=== PATIENT | male | born 1935 | race Caucasian/White ===

== ENCOUNTER 2016-11-22 10:40 | Inpatient (IN) | payer SELFPAY ==
[~2016-11-22] VITALS: Ht 167.6 cm; Wt 69.5 kg
--- NOTE | ~2016-11-22 | ECH ---
Transthoracic Echocardiography Report (TTE) Demographics Patient Name HARVINDER ALEXIS Date of Study 11/22/2016 Patient Number [id number] Visit Number [id number] Date of 1935 Room Number 311 Accession Number [id number] Gender Male Age 81 year(s) Referring Rebecca Shin Living Specialist Ariane Huston Physician [facility] Physician Interpreting [place] Jonh Zavala MD Leasing Manager Physician Supervising Ordering Physician Rebecca Shin MD/SANA RUIZ Nurse Stress Managed Care Nurse Conclusions Contractility Score Summary Normal Left Ventricular contractility was noted. Summary Technically good exam. The estimated left ventricular ejection fraction is 60%. Diastolic assessment reveals Grade I diastolic dysfunction. There is trivial aortic regurgitation by color Doppler. Mild tricuspid regurgitation by color Doppler. There is mild pulmonary hypertension. The pulmonary pressure (RVSP) is 35 mmHg. The ascending aorta appears mildly dilated. The maximum diameter measures 3.6 cm. Procedure Type of Study TTE procedure:Echo Complete SF. Procedure Date Date: 11/22/2016 Start: 02:06 PM Technical Quality: Good visualization Indications:Chest pain and Acute AR. Additional Indications:s/p stent Appropriate Use Criteria: 9 Height: 66 inches Weight: 155 pounds BSA: 1.79 m Rhythm: NSR HR: 75 bpm BP: 135/76 mmHg Allergies - No known allergies. M-Mode/2D Measurements LV Diastolic Dimension: 4.83 cm LV Systolic Dimension: 3.35 cm LV Septum Diastolic: 0.77 cm LV PW Diastolic: 0.9 cm AO Root Dimension: 3.54 cm Cardiac Output: 4.03 l/min LA Dimension: 3.71 cm Cardiac Index: 2.25 l/min*m RV Diastolic Dimension: 4.16 cm LA volume index: 32 ml/m LVOT: 2.06 cm LVOT VTI: 16.15 cm RV Base: 3 cm LV Stroke volume: 53.8 ml RV Mid: 2.1 cm LV Stroke volume index: 30.06 ml/m TAPSE: 2.3 cm TDI-S': 12 cm/s Doppler Measurements AV Peak Velocity: 0.88 m/s MV Peak E-Wave: 0.43 m/s AV Peak Gradient: 3.12 mmHg MV Peak A-Wave: 0.84 m/s AV Mean Gradient: 1.84 mmHg MV E/A Ratio: 0.51 LVOT Peak Velocity: 0.66 m/s MV P1/2t: 74.5 msec AV Area (Continuity):2.61 cm MV Deceleration Time: 157.5 msec TR Velocity:2.84 m/s MV Area (PHT): 2.95 cm TR Gradient:32.26 mmHg PV Peak Velocity: 0.76 m/s Estimated RAP:3 mmHg PV Peak Gradient: 2.3 mmHg Estimated RVSP: 35 mmHg Estimated PASP: 35.26 mmHg E' Septal Velocity: 0.06 m/s A' Septal Velocity: 0.12 m/s E' Lateral Velocity: 0.08 m/s A' Lateral Velocity: 0.13 m/s RA Area: 14.04 cm Findings Left Ventricle Normal left ventricle size and function. Diastolic assessment reveals Grade I diastolic dysfunction. Right Ventricle Normal right ventricle structure and function. Left Atrium Normal left atrial size. Right Atrium Normal right atrial size. Mitral Valve Normal mitral valve structure and function. Mild mitral regurgitation by color Doppler. Aortic Valve Normal aortic valve structure and function. There is trivial aortic regurgitation by color Doppler. Tricuspid Valve Normal tricuspid valve structure and function. Mild tricuspid regurgitation by color Doppler. There is mild pulmonary hypertension. The pulmonary pressure (RVSP) is 35 mmHg. Pulmonic Valve Normal pulmonic valve structure and function. Pericardial Effusion No evidence of pericardial effusion. Miscellaneous The ascending aorta appears mildly dilated. The maximum diameter measures 3.6 cm. Pleural Effusion No evidence of pleural effusion. Contractility Score LV regional wall motion:(0-Non visualized 1-Normal 2-Hypokinesis 3-Akinesis 4-Dyskinesis 5-Aneurysm) Signature
--- NOTE | ~2016-11-22 | DS ---
ADMIT: 11/22/2016 RM/LOC: [address] [facility] MR#: [id number] [id number] [facility] [place], [place] [address] HARVINDER ALEXIS [address] [place] [address] General Discharge Summary SEX: M AGE: 81 : 1935 Fay Barahona RN, scribing for Kojo Bateman MD ADMISSION DATE: 11/22/2016 DISCHARGE DATE: 11/24/2016 REASON FOR ADMISSION: Chest pain, inferior ST-elevated myocardial infarction. PROCEDURES PERFORMED: 1. On 11/22/2016, by Dr. Alonso Bateman and Dr. Mohsen Fernandez, left heart catheterization performed with selective coronary angiography as well as percutaneous coronary intervention to right coronary artery with drug- eluting stent. 2. Echocardiogram on 11/22/2016, demonstrated ejection fraction of 60% with trivial aortic regurgitation, mild tricuspid regurgitation, mild pulmonary hypertension, mild dilatation of ascending aorta at 3.6 cm. FINAL DIAGNOSES: 1. Acute inferior ST-elevated myocardial infarction. 2. 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 3. Hyperlipidemia. 4. History of tobacco use. 5. Chronic obstructive pulmonary disease. HOSPITAL COURSE: Harvinder is a pleasant 81-year-old gentleman with no prior history of coronary artery disease, who presented to [place] [facility] room after having chest discomfort beginning at 8:00 a.m. on the day of presentation. He described it as a burning sensation in his chest that did not go away. In the emergency room in [place], he was found to have ST elevation in inferior leads on EKG and for this reason, was transferred for further evaluation and treatment to [facility]. On arrival to [place], he described that he was having minimal discomfort and he was overall comfortable after being started on a heparin drip, receiving aspirin and morphine and nitroglycerin in [place]. He did not receive a beta-jennifer because of presumed RCA territory involved with concern for hypotension and bradycardia. He was taken emergently to cardiac catheterization lab where a blockage of proximal right coronary artery was found and 4.0 x 16 mm Synergy drug-eluting stent was placed to proximal right coronary artery with good angiographic result. Radial access was obtained and postprocedure, he was transferred to ICU for close monitoring with a TR band placed per protocol until hemostasis was obtained. Post procedure, he was ordered Brilinta, low-dose aspirin 81 mg only, Lipitor 40 at bedtime with lisinopril 5 p.o. daily, and Lopressor 25 p.o. b.i.d. for BLAYNE inhibitor and beta-jennifer therapy. On 11/23/2016, he had no complaints. He had no chest discomfort, shortness of breath, palpitations, or presyncope. No peripheral edema was noted. His vital signs were stable. Lab work included white blood cell count 11.6, hemoglobin 17.0, hematocrit 48.2, platelets 212. Sodium was 138, potassium 4.3, BUN 17, creatinine 0.9. HDL was 69 with LDL of 103, total cholesterol ADMIT: 11/22/2016 RM/LOC: [address] [facility] MR#: [id number] [id number] [facility] [facility] [address] [place] [id number] [facility] [address] [place] [id number] General Discharge Summary SEX: M AGE: 81 : 1935 198, and triglycerides of 132. CK was 524, MB of 69.4, relative index 13.2, which were peak values. No troponin was checked due to his evidence of ST- elevated myocardial infarction with emergent cardiac catheterization. Lab work remained unchanged during hospital course with good renal function and CBC as well. On November 24, he continued to do well. He wanted to go home. He had no complaints of shortness of breath or chest discomfort. He was tolerating his medications well. Blood pressure was 101/64. He was afebrile at 96.6, pulse was 73 with respirations of 18. Echocardiogram showed good ejection fraction and EKG showed no evidence of ST elevation at this point. He was on appropriate medications. It was deemed appropriate for discharge with followup in 1 to 2 weeks in [place]. He was discharged to home in stable condition. Home instructions included no lifting greater than 5 pounds for 3 days with other post cardiac catheterization protocol orders. He was to follow up with Dr. Rivers or Dr. Mohsen Fernandez in 2 weeks in [place] and to call on following Friday to make the appointment given weekend discharge. MEDICATIONS ON DISCHARGE: Included: 1. Atorvastatin 40 p.o. at bedtime. 2. Aspirin 81 daily. 3. Brilinta 90 mg p.o. b.i.d. 4. Multivitamin daily. 5. Vitamin C 1000 mg daily. 6. Lopressor 25 p.o. b.i.d. 7. Zestril 5 mg p.o. daily. I have read and agree with the documentation that has been completed regarding this visit. By signing this record, I attest that the documentation was completed in my physical presence and is an accurate record of the encounter. Fay Barahona RN / Kojo Bateman MD / rob JOB #: [id number] CC: Mohsen Fernandez MD, Attending Physician Mohsen Fernandez MD, Family Physician
--- NOTE | ~2016-11-22 | HP ---
ADMIT: 11/22/2016 RM/LOC: 311 [facility] MR#: [id number] [address] [address] [place] [address] History and Physical SEX: M AGE: 81 : 1935 DATE OF SERVICE: 11/22/2016 CHIEF COMPLAINT: Chest pain. Inferior ST-elevated myocardial infarction. HISTORY OF PRESENT ILLNESS: The patient is a pleasant 81-year-old, male with no known history of coronary artery disease. He does have hyperlipidemia, and a past medical history of tobacco abuse, but otherwise he is relatively healthy. This morning by 8:00, he began having a burning sensation in his chest. It did not subside, and therefore he went into the emergency room at [place] and was found to have ST elevation in his inferior leads on his EKG. He was transferred here for further evaluation and treatment, and primary PCI if able. When we visit with him on the way to the clinical laboratory service teacher, he is comfortable. He states he just has some mild amount of chest pain. He has been started on a heparin drip, received aspirin, and morphine, and nitro while in the emergency room at [place]. He did not receive a beta-jennifer because of the RCA territory involved with concern for hypotension and bradycardia. REVIEW OF SYSTEMS: Not obtained due to emergent status. FAMILY HISTORY: Noncontributory. SOCIAL HISTORY: He is . His is here with him. He does have a history of tobacco abuse. He smoked for approximately 55 years. PAST MEDICAL HISTORY: 1. COPD. 2. Hyperlipidemia. 3. History of tobacco abuse. ALLERGIES: NO KNOWN MEDICAL ALLERGIES. MEDICATIONS: He states he take Lipitor, unknown dose. PHYSICAL EXAMINATION: VITAL SIGNS: O2 saturation 95% with oxygen, blood pressure 129/78, heart rate of 84, respirations of 12. SKIN: [place], warm and dry. EYES: Sclerae clear. No xanthelasmas. ENT: Oral mucosa is pink and moist. No jugular venous distention or carotid bruits. CHEST: Respirations are even and unlabored. Lungs are clear to auscultation. HEART: Regular rate and rhythm. Normal S1, S2. No murmurs, rubs or gallops. ABDOMEN: Soft and nontender. MUSCULOSKELETAL: Gait is normal. EXTREMITIES: Peripheral pulses palpable. No clubbing, cyanosis or edema. PSYCHIATRIC: Alert and oriented. Mood and affect are appropriate. DIAGNOSTICS: Sodium 141, potassium 3.7, chloride 103, carbon dioxide 27.3, ADMIT: 11/22/2016 RM/LOC: 311 [facility] MR#: [id number] [address] [address] [place] [address] History and Physical SEX: M AGE: 81 : 1935 BUN of 21, glucose 120, creatinine 0.94. AST of 19, ALT of 27, mag of 2.2. CK, MB, and troponin are all normal. White blood count 8.86, red blood count of 5.48, hemoglobin is 17.6, hematocrit 51.9, with a platelet count of 246. EKG again demonstrates ST elevation in the inferior leads. PLAN: Risks and benefits such as, but not limited to, pain, infection, bleeding, neurovascular damage, kidney damage, WI, stroke, and rarely were explained to patient and he are willing to proceed to go directly to the clinical laboratory service teacher. Further recommendations will be based on the above diagnostics. Thank you for allowing us to participate in care of this patient. VERONICA Allen / Brigitte. Alonso Bateman MD / rob JOB #: [id number] CC: Mohsen Fernandez, Attending Physician Mohsen Fernandez, Family Physician
[2016-11-24] MEDS ORDERED: BRILINTA90 MG PO (14:40)
[2016-11-24] MEDS ORDERED: ASA CHILDREN'S81 MG PO (14:40)
[2016-11-24] MEDS ORDERED: ATORVASTATIN CA40 MG PO (14:40)
[2016-11-24] MEDS ORDERED: CENTRUM SILVER1 EAC1 PO (14:41)
[2016-11-24] MEDS ORDERED: LOPRESSOR DPS50 MG PO (14:41)
[2016-11-24] MEDS ORDERED: ZESTRIL5 MG PO (14:41)
[2016-11-24] MEDS ORDERED: VITAMIN C1000 MG PO (14:41)
== END 2016-11-24 11:40 | disposition home or self-care (01) | DRG 247 ==
LOC: SSS 10:40 → 4PCU 12:15 → 3ICU 12:15 → 4PCU 11-23 11:51
PROVIDERS: ADMIT Internal Medicine
PROC: 027034Z Dilation of Coronary Artery, One Artery with Drug-eluting Intraluminal Device, Percutaneous Approach (ICD-10-PCS; principal; 2016-11-22)
PROC: B2111ZZ Fluoroscopy of Multiple Coronary Arteries using Low Osmolar Contrast (ICD-10-PCS; principal; 2016-11-22)
PROC: 4A023N7 Measurement of Cardiac Sampling and Pressure, Left Heart, Percutaneous Approach (ICD-10-PCS; principal; 2016-11-22)
PROC: 3E0234Z Introduction of Serum, Toxoid and Vaccine into Muscle, Percutaneous Approach (ICD-10-PCS; 2016-11-24)
DX: I21.19 ST elevation (STEMI) myocardial infarction involving other coronary artery of inferior wall (principal); J44.9 Chronic obstructive pulmonary disease, unspecified; I25.10 Atherosclerotic heart disease of native coronary artery without angina pectoris; Z23 Encounter for immunization; E78.5 Hyperlipidemia, unspecified; Z87.891 Personal history of nicotine dependence